=== PATIENT | female | born 1950 ===

== ENCOUNTER → 2017-12-17 | Outpatient (CLI) | payer OTHER ==
[~2017-12-17] MED LIST: CHOL10002 PO; LISHYD2012 PO; LOVA20 PO; METO50ER PO; MULVITMIND PO; OMEP20ER PO
== END | disposition home or self-care (01) ==
LOC: LAB SHORT 10:19 → PLD 10:19
DX: D22.62 Melanocytic nevi of left upper limb, including shoulder (principal)
CPT/HCPCS: 88305

== ENCOUNTER → 2019-02-09 | Outpatient (CLI) | payer OTHER | END | disposition home or self-care (01) | LOC: PLD 13:38 → LAB SHORT 13:38 | DX: D22.72 Melanocytic nevi of left lower limb, including hip (principal) | CPT/HCPCS: 88305 ==

== ENCOUNTER → 2021-04-25 | Outpatient (CLI) | payer OTHER | END | disposition home or self-care (01) | LOC: LAB SHORT 14:28 | DX: A49.9 Bacterial infection, unspecified (principal) | CPT/HCPCS: 87070; 87077; 87147; 87186; 87205 ==

== ENCOUNTER → 2022-10-29 | Outpatient (CLI) | payer OTHER | END | disposition home or self-care (01) | LOC: LAB 12:48 → LAB SHORT 12:48 | DX: L08.9 Local infection of the skin and subcutaneous tissue, unspecified (principal) | CPT/HCPCS: 87070; 87077; 87147; 87186; 87205 ==

== ENCOUNTER 2024-12-28 20:05 | Emergency (ER) | payer OTHER ==
[~2024-12-28] VITALS: Ht 154.9 cm; Wt 72.6 kg
== END 2024-12-28 23:56 | disposition home or self-care (01) ==
LOC: ER 20:05
DX: S43.005A Unspecified dislocation of left shoulder joint, initial encounter (principal); E86.0 Dehydration; Z79.82 Long term (current) use of aspirin; Z79.84 Long term (current) use of oral hypoglycemic drugs; Z79.899 Other long term (current) drug therapy; W01.0XXA Fall on same level from slipping, tripping and stumbling without subsequent striking against object, initial encounter; Z59.89 Other problems related to housing and economic circumstances